=== PATIENT | female | born 1990 | race African-American/Black ===

== ENCOUNTER 2023-07-27 08:15 | Inpatient (IN) | payer OTHER ==
[2023-07-27] VITALS (16 sets, daily range): BP systolic 117–153; BP diastolic 68–95; O2SAT 100
[~2023-07-27] VITALS: Ht 172.7 cm; Wt 95.5 kg
[2023-07-27] MEDS ORDERED: LACTATED RINGER'S 1000 ML IV STA (08:56)
[2023-07-27] MEDS ORDERED: PENICILLIN G POTASSIUM 5 MU IV 5 MU in D5W MINI-BAG PLUS 100 ML IV STA (08:56)
[2023-07-27] MEDS ORDERED: PRENTAB9 PO (08:59)
[2023-07-27] MEDS ORDERED: LR 1,000 ML IV SCH (09:00)
[2023-07-27] MEDS ORDERED: HOME MED LIST COMPLETE! XX SCH (09:00)
[2023-07-27] MEDS ORDERED: CARBOPROST TROMETHAMINE 250 MCG/ML AMP IM PRN (09:00)
[2023-07-27] MEDS ORDERED: LIDOCAINE 1% MDV 20ML VIAL INFIL PRN (09:00)
[2023-07-27] MEDS ORDERED: OXYTOCIN DRIP 30 UNITS in IV 1 EA IV PRN ×4 (09:00)
[2023-07-27] MEDS ORDERED: METHYLERGONOVINE MALEATE 0.2MG/ML 1ML VIAL IM PRN (09:00)
[2023-07-27] MEDS ORDERED: TRANEXAMIC ACID INJection 1,000 MG in NS 100 ML IV PRN (09:00)
[2023-07-27 09:32] LABS: HEMATOCRIT 39.5 % (36.0-47.0); HEMOGLOBIN 13.6 g/dl (12.0-15.5); MEAN CORPUSCULAR HEMOGLOBIN 29.2 pg (27.0-33.0); MEAN CORPUSCULAR HGB CONC 34.4 g/dl (32.0-36.5); MEAN CORPUSCULAR VOLUME 84.9 fl (80.0-96.0); PLATELET COUNT, AUTOMATED 200 10^3/uL (150-450); RED BLOOD COUNT 4.65 10^6/uL (4.00-5.40); WHITE BLOOD COUNT 6.7 10^3/uL (4.0-10.0)
[2023-07-27] MEDS ORDERED: FENTANYL/ROPIVACAINE/NACL BAG 100 ML EPIDURAL SCH (10:10)
[2023-07-27] MEDS ORDERED: ePHEDrine SULFATE 25 MG/5 ML(5MG/ML) SYRINGE IVP PRN (10:10)
[2023-07-27] MEDS ORDERED: LR 500 ML IV PRN (10:10)
[2023-07-27] MEDS ORDERED: diphenhydrAMINE 50MG/ML VIAL IV PRN (10:10)
[2023-07-27] MEDS ORDERED: EPIDURAL/PCA KEYS XX PRN (10:10)
[2023-07-27] MEDS ORDERED: ONDANSETRON 4MG 2ML VIAL IV PRN (10:10)
[2023-07-27] MEDS ORDERED: NALOXONE INJ 0.4MG/1ML VIAL IV PRN (10:10)
[2023-07-27] MEDS ORDERED: FENTANYL 2MCG/ML ROPIVACAINE 0.2% IN 0.9% NACL 100ML IVBAG As Ordered ONE (10:12)
[2023-07-27] MEDS ORDERED: RHOGAM 300MCG (1500IU) INJ IM SCH (12:45)
[2023-07-27] MEDS ORDERED: ACETAMINOPHEN TAB 650MG DOSE (2X325MG) PO PRN (12:45)
[2023-07-27] MEDS ORDERED: ACETAMINOPHEN 500 MG TAB PO PRN (12:45)
[2023-07-27] MEDS ORDERED: IBUPROFEN 600MG TAB PO PRN (12:45)
[2023-07-27] MEDS ORDERED: DOCUSATE SODIUM 100MG CAPSULE PO PRN (12:45)
[2023-07-27] MEDS ORDERED: DIBUCAINE 1% OINTMENT 30GM TOP PRN (12:45)
[2023-07-27] MEDS ORDERED: METHYLERGONOVINE MALEATE 0.2 MG TAB PO PRN (12:45)
[2023-07-27] MEDS ORDERED: IBUPROFEN 800 MG TAB PO PRN (12:45)
[2023-07-27] MEDS ORDERED: OXYTOCIN DRIP 30 UNITS in IV 1 EA IV SCH (12:45)
[2023-07-27] MEDS ORDERED: PEN G POT 3,000,000 UNIT/50 ML 3,000,000 UNIT in IV 1 EA IV SCH (13:35)
[2023-07-28 06:00] VITALS: BP 135/71; O2SAT 99
[2023-07-28] MEDS ORDERED: PRENATAL VITAMINS CHEWABLE TABLET PO SCH (09:00)
[2023-07-28] MEDS ORDERED: INFLUENZA QUADRIVALENT PF VACCINE 0.5ML SYRINGE IM.IMMUN ONE (18:00)
== END 2023-07-28 18:00 | disposition home or self-care (01) | DRG 807 ==
LOC: M LDO 08:15 → M LDI 08:50 → M OBS 16:03
PROVIDERS: ADMIT Advanced Practice Midwife; ATTEND Advanced Practice Midwife
PROC: 10E0XZZ Delivery of Products of Conception, External Approach (ICD-10-PCS; principal; 2023-07-27)
DX: O48.0 Post-term pregnancy (principal); Z37.0 Single live birth; O99.824 Streptococcus B carrier state complicating childbirth; D57.3 Sickle-cell trait; O99.02 Anemia complicating childbirth; Z3A.40 40 weeks gestation of pregnancy

== ENCOUNTER 2025-03-22 21:50 | Emergency (ER) | payer OTHER ==
[~2025-03-22] VITALS: Ht 172.7 cm; Wt 85.0 kg
[~2025-03-22 21:50] MED LIST: CELE1CAP99; CETI-24 PO; ESCITALOPRAM; FLON27.5 NARES; GABA-1172; LOSA100T46; OLOP2.5D3 OU; PRENTAB9 PO; ZONI50CA11
[2025-03-22 22:00] VITALS: BP 124/73; TEMP 98.6; O2SAT 99
[2025-03-23] MEDS: predniSONE 20 MG TAB PO ONE (03:08)
[2025-03-23] MEDS: KETOROLAC TROMETHAMINE 10 MG TAB PO ONE (03:08)
[2025-03-23] MEDS ORDERED: MEDR4PAK PO (06:03)
== END 2025-03-23 06:12 | disposition home or self-care (01) ==
LOC: M ED 21:50
DX: M51.362 Other intervertebral disc degeneration, lumbar region with discogenic back pain and lower extremity pain (principal); I10 Essential (primary) hypertension; F32.A Depression, unspecified; D57.3 Sickle-cell trait; Z79.899 Other long term (current) drug therapy
CPT/HCPCS: 72131; 99283; J7512

== ENCOUNTER 2025-07-07 07:19 | Emergency (ER) | payer OTHER ==
[~2025-07-07] VITALS: Ht 175.3 cm; Wt 82.7 kg
[~2025-07-07 07:19] MED LIST changes: -LOSA100T46; +LOSA100T46 PO; +MEDR4PAK PO
[2025-07-07 08:17] LABS: BASO # 0.0 10^3/uL (0.0-0.2); BASO % 0.4 % (0.0-1.0); EOS # 0.1 10^3/uL (0.0-0.5); EOS % 0.9 % (0.0-3.0); LYMPH # 3.3 10^3/uL (1.5-5.0); LYMPH % 60.9 % (24.0-44.0); MONO # 0.3 10^3/uL (0.0-0.8); MONO % 5.4 % (2.0-8.0); NEUTROPHILS # 1.7 10^3/uL (1.5-8.5); NEUTROPHILS % 32.2 % (36.0-66.0); PLATELET COUNT, AUTOMATED 276 10^3/uL (150-450)
[2025-07-07 08:45] LABS: CK-MB VALUE MASS 1.3 NG/ML (<3.6)
[2025-07-07 08:47] LABS: ALT/SGPT 23 U/L (7.0-40); AST/SGOT 27 U/L (<34); CALCIUM LEVEL 8.8 MG/DL (8.5-10.1); CARBON DIOXIDE LEVEL 28 MMOL/L (20-31); CHLORIDE LEVEL 105 MMOL/L (98-107); CREATININE FOR GFR 0.84 MG/DL (0.55-1.30); GLOMERULAR FILTRATION RATE > 90.0 (>60); POTASSIUM SERUM 3.8 MMOL/L (3.5-5.1); SODIUM LEVEL 142 MMOL/L (136-145)
[2025-07-07 08:49] LABS: FREE T4 1.12 NG/DL (0.89-1.76)
[2025-07-07 08:51] LABS: CPK CREATINE PHOSPHOKINASE 182 U/L (34-145); MB/CK RELATIVE INDEX 0.71 (< OR =4)
[2025-07-07 09:07] LABS: HCG, SERUM QUALITATIVE NEGATIVE (NEGATIVE)
[2025-07-07 09:45] LABS: CK-MB VALUE MASS < 1.0 NG/ML (<3.6)
[2025-07-07 09:47] LABS: CPK CREATINE PHOSPHOKINASE 175 U/L (34-145)
[2025-07-07] MEDS: MAALOX 30 ML SUSP *UDC PO ONE (11:04)
[2025-07-07] MEDS: LIDOCAINE VISCOUS 2% SOLN 15 ML UDC PO ONE (11:04)
[2025-07-07] MEDS: IPRATROPIUM 0.5 MG/ALBUTEROL 2.5 MG INH SOL UD 3 ML NEB ONE (11:12)
[2025-07-07] MEDS: KETOROLAC 30 MG/ML 1 ML VIAL IV ONE (13:01)
[2025-07-07] MEDS: GABAPENTIN 300 MG CAP PO ONE (13:40)
[2025-07-07] MEDS ORDERED: GABA-1171 PO (14:06)
[2025-07-07] MEDS ORDERED: GABA-1635 PO (14:06)
[2025-07-07] MEDS ORDERED: FLON1SPR NARES (14:06)
[2025-07-07] MEDS ORDERED: HOME MED LIST COMPLETE! XX SCH (14:10)
[2025-07-07 14:30] VITALS: BP 128/87
[2025-07-07 14:34] VITALS: TEMP 97.7; O2SAT 100
[2025-07-07] MEDS ORDERED: KETO-204 PO (14:38)
== END 2025-07-07 14:49 | disposition home or self-care (01) ==
LOC: M ED 07:19
DX: R07.89 Other chest pain (principal); I10 Essential (primary) hypertension; F32.A Depression, unspecified; D57.3 Sickle-cell trait; Z79.899 Other long term (current) drug therapy
CPT/HCPCS: 71045; 80048; 80076; 82550; 82553; 83690; 84439; 84443; 84484; 84703; 85025; 85379; 93005; 93041; 94640; 94760; 96374; 99285; J1885